=== PATIENT | female | born 1990 | race Hispanic/Latino ===

== ENCOUNTER 2025-09-04 18:09 | Emergency (ER) | payer BC ==
[~2025-09-04] VITALS: Ht 165.1 cm; Wt 110.2 kg
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
[2025-09-04 18:36] VITALS: BP 132/89; PULSE 102; RESP 17; TEMP 98.6; O2SAT 98
[2025-09-04] MEDS: NEOMY SULF/BACITRA/POLYMYXIN B 1 EACH PACKET TP ONE (18:49)
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
[2025-09-04] MEDS ORDERED: AMOX1TAB16 PO (19:11)
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
== END 2025-09-04 19:22 | disposition home or self-care (01) ==
LOC: EDH 18:09
DX: S31.154A Open bite of abdominal wall, left lower quadrant without penetration into peritoneal cavity, initial encounter (principal); J45.909 Unspecified asthma, uncomplicated; W55.41XA Bitten by pig, initial encounter; Y93.89 Activity, other specified; Y92.89 Other specified places as the place of occurrence of the external cause; Y99.8 Other external cause status
CPT/HCPCS: 90471; 90714; 99284